=== PATIENT | male | born 1955 | race Caucasian/White ===

== ENCOUNTER 2021-10-17 05:40 | Emergency (ER) | payer MEDICARE, OTHER ==
[~2021-10-17] VITALS: Ht 182.9 cm; Wt 72.6 kg
--- NOTE | 2021-10-17 06:01 | NUR ---
SHELLIE FROM A [employer] DIVE THRU. TO ER BED 12. AAOX3. NOT IN RESP DISTRESS. 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 NO NEURO DEFICIT NOTED. DESPITE BEING NAUSEOUS, PT DENIES ANY VOMMTING. PT ALSO VERBALIZES THAT HE IS FEELING WEAK WHICH ALSO STARTED 30 MIN ROCK CRUSHER OPERATOR. AWAITING MD FOR EVAL
[2021-10-17] MEDS ORDERED: ONDANSETRON HCL/PF 4 MG/2 ML VIAL ONE ×3 (06:28→16:35)
[2021-10-17] MEDS ORDERED: ONDANSETRON HCL/PF 4 MG/2 ML VIAL IVP ONE (06:30)
[2021-10-17] MEDS ORDERED: IV NS 0.9% 1,000 ML BAG IV ONE (06:30)
--- NOTE | 2021-10-17 06:53 | NUR ---
PATIENT HAS A QUAN CATHETER WAITING TO GET URINE.
[2021-10-17 06:59] LABS: BASOPHILS % (AUTO) 0.3 % (0.0-2.0); CREATININE 1.6 mg/dL (0.6-1.3); HEMATOCRIT 41 % (39-51); HEMOGLOBIN 14.1 g/dL (13.5-17.5); LYMPHOCYTES # (AUTO) 0.6 K/uL (0.8-4.8); LYMPHOCYTES % (AUTO) 6.9 % (20.0-44.0); MEAN CORPUSCULAR HGB CONC 35 g/dl (31.0-36.0); MEAN CORPUSCULAR VOLUME 91 fL (80-96); MONOCYTES # (AUTO) 0.3 K/uL (0.1-1.30); MONOCYTES % (AUTO) 3.8 % (2.0-12.0); NEUTROPHILS # (AUTO) 8.1 K/uL (1.8-8.9); PLATELET COUNT (AUTO) 290 K/uL (150-450); POTASSIUM 4.2 mmol/L (3.5-5.1); RED BLOOD CELL COUNT(AUTO) 4.49 MIL/uL (4.5-6.0); WHITE BLOOD COUNT (AUTO) 9.1 K/uL (4.3-11.0)
[2021-10-17 07:05] LABS: ALBUMIN 4.1 g/dL (3.4-5.0); BILIRUBIN,DIRECT 0.2 mg/dL (0.0-0.2); BILIRUBIN,TOTAL 0.5 mg/dL (0.2-1.0); TOTAL PROTEIN, SERUM 7.6 g/dL (6.4-8.2)
--- NOTE | 2021-10-17 07:53 | NUR ---
PATIENT IS HAVING BREAKFAST
[2021-10-17] MEDS ORDERED: IV D5/ 0.9% NACL 1,000 ML IV ONE (08:30)
[2021-10-17] MEDS ORDERED: ACETAMINOPHEN ES 500 MG TABLET ONE (09:55)
[2021-10-17] MEDS ORDERED: ACETAMINOPHEN ES 500 MG TABLET PO ONE (10:00)
[2021-10-17 10:16] LABS: BILIRUBIN,URINE NEGATIVE (NEGATIVE); LEUKOCYTE ESTERASE ,URINE MODERATE (NEGATIVE); NITRITE, URINE NEGATIVE (NEGATIVE); PH,URINE 5.5 (5.0-8.0); PROTEIN,URINE 30 mg/dl (NEGATIVE); UGLUCOSE NEGATIVE (NEGATIVE); UROBILINOGEN,URINE 0.2 EU/dL (0.2)
[2021-10-17 10:21] LABS: COLOR,URINE STRAW (YELLOW)
[2021-10-17] MEDS ORDERED: CEFTRIAXONE 1GM BAG (ER ONLY) 50 ML IV ONE ×2 (10:52→11:00)
[2021-10-17] MEDS ORDERED: ONDANSETRON HCL/PF 4 MG/2 ML VIAL IV ONE (11:00)
[2021-10-17 11:02] LABS: BACTERIA,URINE Few /HPF (None Seen); SQUAMOUS EPITHELIAL CELL,UR Few /HPF (None Seen)
--- NOTE | 2021-10-17 11:40 | NUR ---
SPOKE TO ALHAJI MILES STAFF ELECTRONIC WARFARE OFFICER: [phone], GAVE UPDATES WITH PATIENT STATUS.
--- NOTE | 2021-10-17 13:08 | NUR ---
CALLED ALHAJI MILES DRAFTER ASSISTANT: [phone], WILL WORK ON IT AND GET BACK TO US.
--- NOTE | 2021-10-17 13:46 | NUR ---
DR. DENISE SPEAKING WITH DR. ANGELA
--- NOTE | 2021-10-17 15:30 | NUR ---
CALLED ALHAJI KAUR [phone] ABOUT TRANSFER VM FULL
[2021-10-17] MEDS ORDERED: ONDANSETRON HCL/PF - ER 4 MG/2 ML VIAL IV ONE (17:00)
--- NOTE | 2021-10-17 18:21 | NUR ---
CALLED AND PAGED DR. LÓPEZ
[2021-10-17 20:00] LABS: CALCIUM, SERUM 8.7 mg/dL (8.5-10.1); CREATININE 1.3 mg/dL (0.6-1.3); POTASSIUM 4.2 mmol/L (3.5-5.1)
[2021-10-17 20:11] LABS: BASOPHILS % (AUTO) 0.2 % (0.0-2.0); HEMATOCRIT 42 % (39-51); HEMOGLOBIN 14.1 g/dL (13.5-17.5); LYMPHOCYTES # (AUTO) 0.6 K/uL (0.8-4.8); LYMPHOCYTES % (AUTO) 4.4 % (20.0-44.0); MEAN CORPUSCULAR HGB CONC 33 g/dl (31.0-36.0); MEAN CORPUSCULAR VOLUME 91 fL (80-96); MONOCYTES # (AUTO) 0.9 K/uL (0.1-1.30); MONOCYTES % (AUTO) 6.6 % (2.0-12.0); NEUTROPHILS # (AUTO) 12.5 K/uL (1.8-8.9); NEUTROPHILS % (AUTO) 88.8 % (43.0-81.0); PLATELET COUNT (AUTO) 310 K/uL (150-450); RED BLOOD CELL COUNT(AUTO) 4.65 MIL/uL (4.5-6.0); WHITE BLOOD COUNT (AUTO) 14.1 K/uL (4.3-11.0)
--- NOTE | 2021-10-17 21:40 | NUR ---
Patient discharged to home in stable condition. Written and verbal after care instructions given. Patient verbalizes understanding of instruction.
[2021-10-17 22:16] VITALS: BP 137/83
== END 2021-10-17 21:40 | disposition home or self-care (01) ==
LOC: ER 05:44
DX: E87.2 Acidosis (principal); N39.0 Urinary tract infection, site not specified; R11.2 Nausea with vomiting, unspecified; E86.0 Dehydration; N40.0 Benign prostatic hyperplasia without lower urinary tract symptoms; Z20.822 Contact with and (suspected) exposure to COVID-19
CPT/HCPCS: 36415; 71045; 80048 ×2; 80076; 81001; 83605 ×2; 83690; 84145; 85025 ×2; 87040 ×2; 87077; 87081; 87086; 87186 ×2; 87426; 96361; 96365; 96366; 96367; 96375; 96376; 99285; J0696; J2405 ×4; J7030; J7042; C9803

== ENCOUNTER 2021-10-28 13:14 | Emergency (ER) | payer MEDICARE, OTHER ==
[~2021-10-28] VITALS: Ht 182.9 cm; Wt 65.8 kg
[2021-10-28 13:27] VITALS: BP 136/81
[2021-10-28] MEDS ORDERED: CETI1TAB9 PO (13:49)
== END 2021-10-28 14:00 | disposition home or self-care (01) ==
LOC: ER 13:21
DX: J06.9 Acute upper respiratory infection, unspecified (principal); F17.210 Nicotine dependence, cigarettes, uncomplicated; F12.90 Cannabis use, unspecified, uncomplicated

== ENCOUNTER 2021-11-14 15:24 | Inpatient (IN) | payer MEDICARE, OTHER ==
[~2021-11-14] VITALS: Ht 185.4 cm; Wt 67.1 kg
[~2021-11-14 15:24] MED LIST: CETI1TAB9 PO
--- NOTE | 2021-11-14 15:37 | NUR ---
CAME IN FOR R FOOT/ANKLE PAIN AND SWELLING X 4 DAYS. ALSO REQUESTING FOR FOOD. TO ER BED 12, HOOKED TO MONITOR, CHANGED TO HOSP GOWN, WARM BLANKET PROVIDED. AWAITING MD ALKE
[2021-11-14] MEDS ORDERED: IV NS 0.9% 1,000 ML BAG IV ONE (16:00)
[2021-11-14] MEDS ORDERED: CEFTRIAXONE 1GM BAG (ER ONLY) 50 ML IV ONE ×2 (16:00→16:33)
--- NOTE | 2021-11-14 16:09 | NUR ---
MOVE SHEET SUBMITTED AND CALLED FOR MS BED.
--- NOTE | 2021-11-14 16:29 | NUR ---
Tammy welch in [facility] - 11/14/21 at 1630 by XIAO DISTRICT ASSOCIATE JUDGE AT PT'S BEDSIDE
[2021-11-14] MEDS ORDERED: KETOROLAC TROMETHAMINE INJ 30 MG/ML VIAL IV ONE (16:30)
[2021-11-14] MEDS ORDERED: KETOROLAC TROMETHAMINE 15 MG/ML VIAL ONE (16:33)
--- NOTE | 2021-11-14 16:40 | NUR ---
RFA #20G S/L; PATENT AND INTACT. F/C IN ELECTRICAL LINEWORKER; DRAINING URINE; PATENT AND INTACT
--- NOTE | 2021-11-14 17:14 | NUR ---
COVID ANTIGEN SWAB AND URINE COLLECTED AND SENT TO LAB
[2021-11-14 18:10] LABS: BASOPHILS # (AUTO) 0.1 K/uL (0.0-0.2); BASOPHILS % (AUTO) 0.8 % (0.0-2.0); EOSINOPHILS % (AUTO) 0.5 % (0.0-6.0); HEMATOCRIT 31 % (39-51); HEMOGLOBIN 10.4 g/dL (13.5-17.5); LYMPHOCYTES % (AUTO) 14.7 % (20.0-44.0); MEAN CORPUSCULAR HGB CONC 34 g/dl (31.0-36.0); MEAN CORPUSCULAR VOLUME 90 fL (80-96); MONOCYTES # (AUTO) 0.6 K/uL (0.1-1.30); MONOCYTES % (AUTO) 8.1 % (2.0-12.0); NEUTROPHILS # (AUTO) 5.3 K/uL (1.8-8.9); NEUTROPHILS % (AUTO) 75.9 % (43.0-81.0); PLATELET COUNT (AUTO) 364 K/uL (150-450); RED BLOOD CELL COUNT(AUTO) 3.41 MIL/uL (4.5-6.0); WHITE BLOOD COUNT (AUTO) 6.9 K/uL (4.3-11.0)
[2021-11-14 18:19] LABS: BILIRUBIN,URINE NEGATIVE (NEGATIVE); COLOR,URINE YELLOW (YELLOW); LEUKOCYTE ESTERASE ,URINE SMALL (NEGATIVE); NITRITE, URINE POSITIVE (NEGATIVE); PROTEIN,URINE 30 mg/dl (NEGATIVE); UGLUCOSE NEGATIVE (NEGATIVE); UROBILINOGEN,URINE 0.2 EU/dL (0.2)
--- NOTE | 2021-11-14 18:51 | NUR ---
LAB STILL NOT RESULTED; F/U WITH ALEX HERNANDEZ. STILL PENDING
[2021-11-14 18:53] LABS: ALBUMIN 2.6 g/dL (3.4-5.0); BILIRUBIN,DIRECT 0.1 mg/dL (0.0-0.2); BILIRUBIN,TOTAL 0.4 mg/dL (0.2-1.0); CALCIUM, SERUM 8.4 mg/dL (8.5-10.1); CREATININE 1.2 mg/dL (0.6-1.3); POTASSIUM 3.8 mmol/L (3.5-5.1); TOTAL PROTEIN, SERUM 6.5 g/dL (6.4-8.2)
--- NOTE | 2021-11-14 19:12 | NUR ---
DORIAN KAUR CALLED DR. SUAREZ SPEAKING WITH ER PROVIDER.
[2021-11-14 19:37] LABS: BACTERIA,URINE Many /HPF (None Seen); RBC,URINE 21-50 /HPF (0-2)
[2021-11-14 19:44] LABS: MUCUS,URINE Moderate /LPF (None Seen)
[2021-11-14 19:45] LABS: SQUAMOUS EPITHELIAL CELL,UR None Seen /HPF (None Seen)
--- NOTE | 2021-11-14 21:34 | NUR ---
PATIENT LYING IN BED AND OFFERED FOOD. ALL NEEDS MET AT THIS TIME. PT IN NO DISTRESS AT AT THIS TIME.
--- NOTE | 2021-11-14 23:52 | NUR ---
PER PAT MILES CM PT HAS AUTHORIZATION TO ADMIT [id number]
--- NOTE | 2021-11-15 00:33 | NUR ---
SHANTANU JAUREGUI ON TELEPHONE CALL WITH DR. LÓPEZ. FLOOR ORDERS RECIEVED BY RN
[2021-11-15] MEDS ORDERED: HYDROCODONE/APAP 5/325MG TABLET PO PRN (01:30)
[2021-11-15] MEDS ORDERED: ZOLPIDEM TARTRATE 5 MG TABLET PO PRN (01:30)
[2021-11-15] MEDS ORDERED: ONDANSETRON HCL/PF 4 MG/2 ML VIAL IV PRN (01:30)
[2021-11-15] MEDS ORDERED: ACETAMINOPHEN 325 MG TABLET PO PRN (01:30)
--- NOTE | 2021-11-15 01:36 | NUR ---
Patient is resting comfortably in bed with eyes closed. Easily aroused. VSS
--- NOTE | 2021-11-15 02:15 | NUR ---
pt sleeping, attached to monitor and pox. vss
--- NOTE | 2021-11-15 04:18 | NUR ---
pt given food, needs met
[2021-11-15 04:46] LABS: BASOPHILS % (AUTO) 0.6 % (0.0-2.0); EOSINOPHILS % (AUTO) 1.4 % (0.0-6.0); HEMATOCRIT 32 % (39-51); HEMOGLOBIN 10.5 g/dL (13.5-17.5); LYMPHOCYTES # (AUTO) 0.6 K/uL (0.8-4.8); LYMPHOCYTES % (AUTO) 6.4 % (20.0-44.0); MEAN CORPUSCULAR HGB CONC 33 g/dl (31.0-36.0); MEAN CORPUSCULAR VOLUME 91 fL (80-96); MONOCYTES # (AUTO) 0.4 K/uL (0.1-1.30); MONOCYTES % (AUTO) 4.4 % (2.0-12.0); NEUTROPHILS # (AUTO) 7.6 K/uL (1.8-8.9); NEUTROPHILS % (AUTO) 87.2 % (43.0-81.0); PLATELET COUNT (AUTO) 349 K/uL (150-450); WHITE BLOOD COUNT (AUTO) 8.7 K/uL (4.3-11.0)
[2021-11-15 04:54] LABS: CALCIUM, SERUM 8.3 mg/dL (8.5-10.1); CREATININE 1.2 mg/dL (0.6-1.3); POTASSIUM 4.3 mmol/L (3.5-5.1)
[2021-11-15] MEDS ORDERED: CEFEPIME 1 GM in IV D5W 50 ML IV SCH (05:00)
[2021-11-15] MEDS ORDERED: CEFEPIME 1 GM VIAL ONE (05:16)
[2021-11-15] MEDS ORDERED: TAMS-12 PO (06:38)
[2021-11-15] MEDS: VANCOMYCIN HCL 0.75 GM in IV D5W 250 ML IV SCH ×2 (11:45→23:36)
[2021-11-15] MEDS: CEFEPIME 1 GM in IV D5W 50 ML IV SCH ×2 (14:18→21:59)
--- NOTE | 2021-11-15 15:14 | NUR ---
SS consult requested for homelessness. SS will follow up at a later time.
--- NOTE | 2021-11-15 15:15 | NUR ---
PER LUISANA BOSCH; DANITZA WILL VISIT PT TOMORROW.
--- NOTE | 2021-11-15 16:19 | NUR ---
IV DISLODGED. INSERTED LFA #18G S/L; PATENT AND INTACT. NO INFILTRATION NOTED
--- NOTE | 2021-11-15 19:45 | NUR ---
ROOM: 325
--- NOTE | 2021-11-15 19:54 | NUR ---
REPORT GIVEN TO SAHARA GILLETTE FOR RADHA
--- NOTE | 2021-11-15 20:45 | NUR ---
PT TRANSPORTED TO UNIT IN [facility] WITH EMT AT BEDSIDE ON STABLE CONDITION. NAD NOTED.
[2021-11-15] MEDS ORDERED: ENOXAPARIN SODIUM 40 MG/0.4 ML DISP.SYRIN SQ SCH (21:00)
--- NOTE | 2021-11-15 21:15 | NUR ---
MS JEEP MECHANIC NOTE PT TRANSPORTED VIA GURNEY TO UNIT AT THIS TIME. PT ADMITTED TO MS UNIT FROM ER FOR ADMITTING DX OF CELLULITIS. A/O X4. PT NOTED WITH UNSTEADY GAIT AND FALL PRECAUTIONS IN PLACE. PT IS STABLE ON ROOM AIR, TOLERATING WELL. NO SOB OR S/S OF RESPIRATORY DISTRESS. SKIN NOTED WITH CELLULITIS OF THE RIGHT FOOT AND SCABBING ON THE LEFT ANKLE. IV ACCESS L FA 18 GAUGE SL. PT ORIENTED TO STAFF, ROOM, AND UNIT. SAFETY PRECAUTIONS IN PLACE. BED IN LOWEST LOCKED POSITION, HOB ELEVATED, SIDE RAILS UP X2, BED ALARM ON, AND CALL LIGHT AND TABLE WITHIN REACH. WILL CONTINUE WITH PLAN OF CARE.
[2021-11-16] VITALS: BP 140/84
--- NOTE | 2021-11-16 01:52 | NUR ---
RN NOTE PT COMPLAINED OF INSOMNIA AND REQUESTED A SLEEPING PILL. ADMINISTERED AMBIEN 5 MG ORDERED. WILL CONTINUE TO MONITOR.
[2021-11-16] MEDS: CEFEPIME 1 GM in IV D5W 50 ML IV SCH (04:25)
--- NOTE | 2021-11-16 06:55 | NUR ---
MS RN CLOSING NOTE PT AWAKE IN BED. A/O X4. PT IS STABLE ON ROOM AIR, TOLERATING WELL. NO SOB OR S/S OF RESPIRATORY DISTRESS. IV ACCESS R FA 22 GAUGE AND L FA 18 GAUGE SL. ALL NEEDS MET AT THIS TIME. SAFETY PRECAUTIONS IN PLACE AT ALL TIMES. BED IN LOWEST LOCKED POSITION, HOB ELEVATED, SIDE RAILS UP X2, BED ALARM ON, AND CALL LIGHT AND TABLE WITHIN REACH. WILL ENDORSE FOR RADHA.
[2021-11-16 07:01] LABS: BASOPHILS # (AUTO) 0.1 K/uL (0.0-0.2); BASOPHILS % (AUTO) 1.3 % (0.0-2.0); EOSINOPHILS % (AUTO) 1.9 % (0.0-6.0); HEMATOCRIT 31 % (39-51); HEMOGLOBIN 10.5 g/dL (13.5-17.5); LYMPHOCYTES # (AUTO) 0.8 K/uL (0.8-4.8); LYMPHOCYTES % (AUTO) 16.7 % (20.0-44.0); MEAN CORPUSCULAR HGB CONC 34 g/dl (31.0-36.0); MEAN CORPUSCULAR VOLUME 90 fL (80-96); MONOCYTES # (AUTO) 0.5 K/uL (0.1-1.30); NEUTROPHILS # (AUTO) 3.6 K/uL (1.8-8.9); NEUTROPHILS % (AUTO) 70.1 % (43.0-81.0); PLATELET COUNT (AUTO) 319 K/uL (150-450); RED BLOOD CELL COUNT(AUTO) 3.47 MIL/uL (4.5-6.0); WHITE BLOOD COUNT (AUTO) 5.1 K/uL (4.3-11.0)
[2021-11-16 07:17] LABS: CALCIUM, SERUM 7.7 mg/dL (8.5-10.1); CREATININE 1.2 mg/dL (0.6-1.3); POTASSIUM 3.8 mmol/L (3.5-5.1)
--- NOTE | 2021-11-16 07:30 | NUR ---
MS RN OPENING NOTE PT AWAKE IN BED. A/O X4. PT IS STABLE ON ROOM AIR, TOLERATING WELL. NO SOB OR S/S OF RESPIRATORY DISTRESS. IV ACCESS R FA 22 GAUGE AND L FA 18 GAUGE SL. ALL NEEDS MET AT THIS TIME. SAFETY PRECAUTIONS IN PLACE AT ALL TIMES. BED IN LOWEST LOCKED POSITION, HOB ELEVATED, SIDE RAILS UP X2, BED ALARM ON, AND CALL LIGHT AND TABLE WITHIN REACH. WILL CONTINUE TO MONITOR.
[2021-11-16 07:49] LABS: THYROID STIMULATING HORMONE 1.023 uIU/mL (0.358-3.74)
--- NOTE | 2021-11-16 08:09 | NUR ---
WOUND CARE CONSULT: PT PRESENTS WITH BILATERAL FOOT WOUNDS AND SCAB TO RT LOWER LEG, PRESENT ON ADMISSION. LIMITED ASSESSMENT DUE TO PT REFUSING TO TURN FOR FULL ASSESSMENT OF BACK AND BUTTOCKS. DPM CONSULT CALLED TO DR JIANG. RECOMMENDATIONS MADE FOR SKIN PROTECTION. DISCUSSED WITH NURSING STAFF. MD IN AGREEMENT WITH PLAN OF CARE.
[2021-11-16 10:29] VITALS: BP 150/92
--- NOTE | 2021-11-16 11:05 | NUR ---
"SS Consult: SS consult for homelessness. Pt. Is a 66-year-old male. Pt. demonstrates adequate insight to the reason for hospitalization. Per pt., he walked to the hospital once he got off the bus. Pt. was oriented x4, alert, and cooperative. During interview, pt. was capable of following directions, made appropriate eye-contact, and appeared unkempt. As evidenced by dirty fingernails. Pt.s speech was at a normal rate. Pt.s mood was elevated. SW explored pt.s hx of mental health and substance abuse. Pt. reported no hx of mental health, substance abuse, suicidal or homicidal ideation. Pt. denies auditory hallucinations, visual hallucinations, paranoia, or delusions. SW explored pt.s living situation. 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 Pt. stated that he has been homeless for about two weeks. Pt. stated that once he gets discharged, he will go to the tents near [facility] until he figures something out. Per pt., he feels safe there. Pt. has no concerns or questions currently. Plan: SW provided available homeless resources and pt. accepted. Once discharge, per pt., he will go to tents near [facility]. Pt. signed homeless waiver and SW placed it in chart. Resources Provided: Winter Shelters: SPA 2 | [facility] Address: Confidential (call for location ) Population Served: Coed # of Beds: 57 SPA 4 | [facility] Provider: Home at Last Address: [address] [place], [place] [id number] # of Beds: 49 Population Served: Coed [facility] 6 | [facility] Provider: Home at Last Address: [address] [place] [address] # of Beds: 49 Population Served: [facility] Provider: Javier Martinez PRMoira Address: [address] [place] [address] # of Beds: 20 Population Served: Women DOMINIK Facility Provider: Home at Last Address: [address] [facility] [address] # of Beds: 30 Population Served: Women SPA 8 | [facility] Provider: [facility] Address: [address] [facility] [address] # of Beds: 65 Population Served: [facility] Year-round shelters: [facility] [address] [place] [address] ; [facility] [address] [place] [address]; [facility] [address] [facility] [address] Winter Shelters: Brandon Infante Provider: [facility] [place] Address: [address], [address] # of Beds: 47 Population Served: Coed [facility] 6 | [facility] Vanessa Ruiz [place] Provider: Home at Last Address: [address], [address] # of Beds: 66 Population Served: [facility] [employer] [place] [employer] [place] Provider: First to Serve Address: [address] [facility], [address] # of Beds: 56 Population Served: [facility] [place]an [place] Provider: /[facility] Address: [address] [facility], [address] # of Beds: 49 Population Served: [facility] 8 | [facility] Provider: First to Serve Address: [address] [facility], [address] # of Beds: 37 Population Served: [facility] Hygiene: [facility]: [address] Phil Moreland ; [facility] [address] [facility] ; [facility] [address] MikeFermin White . Food Resources: [place] [employer] [facility] at [facility]- [address] [place]; Meet Each Need with Dignity ([facility]) [address] [place] Jose Alejandro. [place]; [facility] Food [facility] [address] [facility]; [facility] [address] [facility]. Mental Health resources provided: [facility] [address] [place] [address] ; [facility] [address] [facility] [address], [place], [place] [phone] ; [facility] [address] [facility] [place], [place] [phone] ; [facility] [address] [place], [place] [address] Healthcare Clinics: [facility] [address] [facility], [address] [place]. [place] ; [facility] [address] [facility] [address] [place] [address]; [facility] [address] [facility] [place] [address] [phone] Counseling--Outpatient [facility] [address] [facility], [address] [place], [place] [address] (Specializes in in-depth psychotherapy for emotional distress: anxiety, depression, interpersonal conflicts, life transitions, childhood abuse) [facility] [address] [place], [place] [phone] (Assist with solving problem marital difficulties, separation & divorce, aging parents, & grief, chronic & terminal illness) [facility] [address] [place] [address] (Deal with loss & grief, anxiety, marital difficulties) Homebound/Mental Health Services [address] [facility], [address] [place] [address] (Provide in-home mental services to people who are incapable of leaving their homes) [facility] for [facility]eds of the Elderly Senior Service/Resource Center [address] [place] [address] [facility] [address] Colón [facility] [place] [address] PSYCHIATRIC OUTPATIENT SERVICES [facility] Partial Hospitalization and Intensive Outpatient Program (Managed Care and [place] Only)[address] [facility] [phone] [facility] Partial Hospitalization and Outpatient [address] [place], [place] [phone] [facility] [place] Sen[address] [facility]. [address] [place], [place] [phone] [facility] Partial Hospitalization and Outpatient Tadkxrz38839 [facility] Fermin Strong, [phone] Substance Abuse resources provided included: [facility] Substance Abuse Self-Helpline ([facility]) ; CRI -HELP [address] [facility] [place]. [place] [address] ; [facility] [address] [facility] [address] ; [facility] Rehabilitation Program [address] [phone] ; [facility] [address] [facility] [address] ; [facility] [address] [facility] Cent[facility] [phone] ; Jaki [facility] [address] [facility] [address] ; [facility] Substance Abuse Helpline([facility])-[facility] ; [facility] ; [facility] [place]; [facility]; Cri-Help [place]; [facility] Fermin Strong; [facility] [place]; [facility] [place]; [facility] [place]; [facility]. [place]; Alcoholics Anonymous -SFV; Ir-Wtjo-Gjkvoyp ; Marijuana Anonymous -SFV; Narcotics Anonymous www.na.org;"
[2021-11-16] MEDS: VANCOMYCIN HCL 0.75 GM in IV D5W 250 ML IV SCH (11:13)
[2021-11-16] MEDS ORDERED: CEPH500C2 PO (11:40)
[2021-11-16] MEDS ORDERED: CEFEPIME 2 GM in IV D5W 100 ML IV SCH (13:00)
--- NOTE | 2021-11-16 15:39 | NUR ---
ASSESSMENT SPECIALIST NOTES DISCHARGE PATIENT AT 1539 IN STABLE CONDITION. VITAL SIGNS WITHIN NORMAL RANGES. ALL BELONGINGS ACCOUNTED AND SIGNED FOR. ID BAND REMOVED. BOTH IV ACCESS REMOVED, COVERED WITH DRY DRESSING . NO BLEEDING NOTED. QUAN CATHETER INTACT. WALK WITH PATIENT TO THE [facility]. BUS CARD GIVEN TO THE PATIENT. GELATIN POWDER MIXER GAVE THE ADDRESS FOR THE CARE HOME. MD AND CHARGE NURSE AWARE OF THE DISCHARGE.
[2021-11-16] MEDS ORDERED: ENOXAPARIN SODIUM 40 MG/0.4 ML DISP.SYRIN SQ SCH (21:00)
== END 2021-11-16 15:50 | disposition home or self-care (01) | DRG 699 ==
LOC: ER 15:30 → TRANSITION 11-15 02:14 → MED 11-15 20:39
PROVIDERS: ADMIT Internal Medicine; ATTEND Internal Medicine
DX: T83.511A Infection and inflammatory reaction due to indwelling urethral catheter, initial encounter (principal); L03.115 Cellulitis of right lower limb; L03.116 Cellulitis of left lower limb; N39.0 Urinary tract infection, site not specified; N40.0 Benign prostatic hyperplasia without lower urinary tract symptoms; D64.9 Anemia, unspecified; N40.1 Benign prostatic hyperplasia with lower urinary tract symptoms; Z59.00 Homelessness unspecified; R33.8 Other retention of urine; Y84.6 Urinary catheterization as the cause of abnormal reaction of the patient, or of later complication, without mention of misadventure at the time of the procedure; Y92.009 Unspecified place in unspecified non-institutional (private) residence as the place of occurrence of the external cause; Z20.822 Contact with and (suspected) exposure to COVID-19; L01.00 Impetigo, unspecified; L97.519 Non-pressure chronic ulcer of other part of right foot with unspecified severity; L97.529 Non-pressure chronic ulcer of other part of left foot with unspecified severity; Z86.16 Personal history of COVID-19; F17.200 Nicotine dependence, unspecified, uncomplicated; F12.90 Cannabis use, unspecified, uncomplicated; B35.1 Tinea unguium; Z87.828 Personal history of other (healed) physical injury and trauma
CPT/HCPCS: 36415; 73590-TC; 80048-TC; 80076-TC; 81001; 83540-TC; 83605-TC; 84443-TC; 85025-TC; 87040-TC; 87081-TC; 87086-TC; 87186-TC; C9803; G0378; J0692; J0696; J1650; J1885; J3370; J7030; J7050; J7060